=== PATIENT | female | born 1980 | race Caucasian/White ===

== ENCOUNTER 2017-12-28 17:16 | Emergency (ER) | payer MEDICAID, SELFPAY ==
[2017-12-28 17:17] VITALS: BP 124/65; PULSE 88; RESP 16; TEMP 37.2; O2SAT 95; BMI 25.0
[2017-12-28] MEDS: Ondansetron ODT 4 MG Tablet PO (17:50)
[2017-12-28] MEDS: proMETHazine 25 MG Tablet PO (19:00)
--- NOTE | 2017-12-28 19:08 | ED.DCSUM_ITS ---
- ER Visit Summary Date of Service: 12/28/17 Chief Complaint: Vomiting History of Present Illness: The patient is a 37 F who states she was nauseated when she woke this morning. She vomited a couple times over the past 2 hours. Patient states she was unable to keep down even water. She had to leave work early. She denies fever or chills. She denies abdominal pain. Patient has an IUD denies possibility of . She believes she may have eaten some bad food last night per Physical Examination: Vital signs unremarkable. Patient sitting upright in bed no acute distress. Heart is regular rate and rhythm. Lung sounds are clear. Abdomen is soft nontender. Hypoactive bowel sounds are noted throughout. Test Results: [] Emergency Department Course and Treatment: Patient was given p.o. Zofran. On repeat evaluation she reports no improvement. She is given p.o. Phenergan. On repeat examination she does have some improvement in her symptoms. She be given prescriptions for both Zofran and Phenergan to use as needed. Treatment Plan: [] Disposition: Discharge Impression: Nausea, improved This note was generated with [employer] dictation software. It may contain incorrect words, spelling, and punctuation that were not noted in review of the chart prior to signing ED Disposition - Plan for ED Patient: Chief Complaint: Nausea/Vomiting Referrals: Care Physician,No Primary [Primary Care Provider] -
--- NOTE | 2017-12-28 19:55 | ED.DEP ---
ED Disposition - Plan for ED Patient: Disposition: Home or Assisted Living Chief Complaint: Nausea/Vomiting Instructions: ED Nausea Vomiting Prescriptions: proMETHazine tablet [Phenergan] 25 mg PO Q6H PRN PRN #10 tablet PRN Reason: Nausea Ondansetron [Zofran Odt] 4 mg PO Q8H PRN PRN #10 tablet PRN Reason: Nausea Referrals: Taran Garner MD [NON-STAFF] - As Needed
[2017-12-28 19:59] VITALS: PULSE 79; RESP 16; O2SAT 97
== END 2017-12-28 20:01 | disposition home or self-care (01) ==
PROVIDERS: Emergency Provider Emergency Medicine
DX: R11.2 Nausea with vomiting, unspecified (principal); F31.9 Bipolar disorder, unspecified; Z87.891 Personal history of nicotine dependence; Z97.5 Presence of (intrauterine) contraceptive device
CPT/HCPCS: 99283